=== PATIENT | male | born 1935 ===

== ENCOUNTER → 2018-05-14 | Outpatient (CLI) | payer OTHER ==
[~2018-05-14] MED LIST: CARDURA8 MG PO; CELESTONE0.6 MG/5 M PO; ECHINACEA125 M1 PO; FORADIL12 MCG IH; GINKGO BILOBA PO; LEVAQUIN500 MG PO; LEVSIN0.125 MG PO; MEDROL4 MG PO; MUCINEX600 MG PO; ROBITUSSIN10 MG MM; SIMVASTATIN10 MG PO; SINGULAIR10 MG PO
== END | disposition home or self-care (01) ==
LOC: TOM 10:16
DX: R13.19 Other dysphagia (principal); J02.8 Acute pharyngitis due to other specified organisms
CPT/HCPCS: 70491; Q9965